=== PATIENT | female | born 1990 | race African-American/Black ===

== ENCOUNTER 2020-01-14 15:57 | Emergency (ER) | payer MEDICAID, OTHER ==
[~2020-01-14] VITALS: Ht 170.2 cm; Wt 51.7 kg
[~2020-01-14 15:57] MED LIST: MACROBID100 MG ORAL; PRENATAL 19 TA1 EACH PO; ZOFRAN ODT4 MG ORAL; ZOFRAN4 MG ORAL
--- NOTE | 2020-01-14 16:17 | NUR ---
ED Nurse Note: Pt ambulated to ed c/o lower left abdomen pain with nausea vomiting x2 days. pt urine specimen collected, iv site established patent and intact. blood specimen sent to lab
[2020-01-14 16:18] VITALS: BP 110/67
[2020-01-14] MEDS ORDERED: Morphine Sulfate 2mg/ml Inj(IV/IM USE ONLY) IVP ONE (16:30)
[2020-01-14] MEDS ORDERED: Omnipaque-300 100ml vial INJ PRN (16:30)
--- NOTE | 2020-01-14 16:38 | Emergency Room Report ---
History of Present Illness General Chief Complaint: Abdominal Pain Source: Patient Present Illness HPI 29-year-old female with no significant past medical history presents with lower abdominal pain and vomiting for 3 days. She reports her LMP was 02/08/2020 and she is not sure if she is however she has had the IUD for the past 3 years. She denies any fever, diarrhea, constipation, urinary symptoms, flank pain. No medications taken for pain. Pain rated 8 out of 10. Allergies: Coded Allergies: NO KNOWN DRUG ALLERGIES (Unverified Allergy, Unknown, 03/15/15) Patient History Past Medical History: see triage record Now: No : 2 Para: 1 Reviewed Nursing Documentation: PMH: Agreed; PSxH: Agreed Nursing Documentation-PMH Past Medical History: No Stated History Review of Systems All Other Systems: negative except mentioned in HPI Physical Exam Vital Signs Date Time Temp Pulse Resp B/P (MAP) Pulse Ox O2 Delivery O2 Flow Rate FiO2 01/14/20 15:59 99.1 78 16 110/67 (81) 98 Room Air Sp02 EP Interpretation: reviewed, normal General Appearance: normal inspection, well appearing, no apparent distress, alert, GCS 15, non-toxic ENT: EOM grossly intact, normal pharynx, normal voice, TMs + canals normal, uvula midline Neck: normal inspection, full range of motion, supple, thyroid normal, no meningismus, no bony tend Respiratory: chest non-tender, lungs clear, normal breath sounds, no respiratory distress Cardiovascular #1: normal peripheral pulses, regular rate, rhythm Gastrointestinal: normal inspection, normal bowel sounds, soft, no mass, no organomegaly, no guarding, no rebound, other - Right lower quadrant tenderness Genitourinary: CVA tenderness (R) Musculoskeletal: normal inspection, normal range of motion, no calf tenderness , gait/station normal, non-tender Neurologic: alert, motor strength/tone normal, 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 Fernandes is my supervising physician whom patient management and care has been discussed with. Diagnostic Impression: Primary Impression: Pyelonephritis ER Course Pt. presents to the ED c/o lower abdominal pain and vomiting for 3 days. Ddx considered but are not limited to appendicitis, UTI, pyelonephritis, nephrolithiasis, ovarian torsion, hemorrhagic cyst, gastroenteritis. Vital signs: are WNL, pt. is afebrile H&PE are most consistent with pyelonephritis ORDERS: Labs within normal limits Urinalysis evident for UTI CT abdomen pelvis favors pyelonephritis negative Drug tox positive for THC ED INTERVENTIONS: Patient given IV normal saline, morphine, Zofran. DISCHARGE: Patient with significant relief from medications. Abdomen nontender. Tolerating p.o. fluids. Vitals stable. Good candidate for outpatient treatment at this time. Pt. is stable for d/c to home. Will provide printed patient care instructions, and prescription for Keflex 500 mg 4 times daily for 7 days. Advised increase in water intake. Advised to follow up outpatient in 1 -2 days. Care plan and follow up instructions have been discussed with the patient prior to discharge. Strict return precautions given. Laboratory Tests Test 01/14/20 16:15 White Blood Count 10.5 K/UL (4.8-10.8) Red Blood Count 4.25 M/UL (4.20-5.40) Hemoglobin 13.1 G/DL (12.0-16.0) Hematocrit 40.0 % (37.0-47.0) Mean Corpuscular Volume 94 FL (80-99) Mean Corpuscular Hemoglobin 30.8 PG (27.0-31.0) Mean Corpuscular Hemoglobin Concent 32.7 G/DL (32.0-36.0) Red Cell Distribution Width 12.2 % (11.6-14.8) Platelet Count 229 K/UL (150-450) Mean Platelet Volume 8.4 FL (6.5-10.1) Neutrophils (%) (Auto) 59.9 % (45.0-75.0) Lymphocytes (%) (Auto) 23.3 % (20.0-45.0) Monocytes (%) (Auto) 14.5 % (1.0-10.0) H Eosinophils (%) (Auto) 0.1 % (0.0-3.0) Basophils (%) (Auto) 2.1 % (0.0-2.0) H Urine Color Brown Urine Appearance Clear Urine pH 6 (4.5-8.0) Urine Specific Yeso 1.010 (1.005-1.035) Urine Protein 2+ (NEGATIVE) H Urine Glucose (UA) Negative (NEGATIVE) Urine Ketones 3+ (NEGATIVE) H Urine Blood 2+ (NEGATIVE) H Urine Nitrite Negative (NEGATIVE) Urine Bilirubin Negative (NEGATIVE) Urine Urobilinogen 8 MG/DL (0.0-1.0) H Urine Leukocyte Esterase 3+ (NEGATIVE) H Urine RBC 2-4 /HPF (0 - 2) H Urine WBC 5-10 /HPF (0 - 2) H Urine Squamous Epithelial Cells Few /LPF (NONE/OCC) Urine Bacteria Moderate /HPF (NONE) H Urine HCG, Qualitative Negative (NEGATIVE) Sodium Level 136 MMOL/L (136-145) Potassium Level 3.5 MMOL/L (3.5-5.1) Chloride Level 98 MMOL/L (98-107) Carbon Dioxide Level 28 MMOL/L (21-32) Anion Gap 10 mmol/L (5-15) Blood Urea Nitrogen 9 mg/dL (7-18) Creatinine 0.9 MG/DL (0.55-1.30) Estimate Glomerular Filtration Rate > 60 mL/min (>60) Glucose Level 101 MG/DL (74-106) Calcium Level 9.2 MG/DL (8.5-10.1) Total Bilirubin 0.4 MG/DL (0.2-1.0) Aspartate Amino Transferase (AST) 19 U/L (15-37) Alanine Aminotransferase (ALT) 21 U/L (12-78) Alkaline Phosphatase 51 U/L (46-116) Total Protein 7.6 G/DL (6.4-8.2) Albumin 2.9 G/DL (3.4-5.0) L Globulin 4.7 g/dL Albumin/Globulin Ratio 0.6 (1.0-2.7) L Lipase 89 U/L (73-393) Urine Opiates Screen Negative (NEGATIVE) Urine Barbiturates Screen Negative (NEGATIVE) Phencyclidine (PCP) Screen Negative (NEGATIVE) Urine Amphetamines Screen Negative (NEGATIVE) Urine Benzodiazepines Screen Negative (NEGATIVE) Urine Cocaine Screen Negative (NEGATIVE) Urine Marijuana (THC) Screen Positive (NEGATIVE) H CT/MRI/US Diagnostic Results CT/MRI/US Diagnostic Results : Impression CT abdomen and pelvis with contrast: Preliminary findings by radiologist Grabiel Alicea MD Cortical hypodensities to both kidneys, right more pronounced than left. Favor pyelonephritis. No hydronephrosis. No bowel obstruction or perforation. The appendix is not identified due to lack of intra-peritoneal fat. IUD within the central uterus. 1.7 cm involuting right ovarian cyst. Last Vital Signs Date Time Temp Pulse Resp B/P (MAP) Pulse Ox O2 Delivery O2 Flow Rate FiO2 01/14/20 16:18 78 16 Room Air 01/14/20 16:18 99.1 110/67 98 Disposition: HOME, SELF-CARE Condition: Stable Scripts Cephalexin* (KEFLEX*) 500 Mg Capsule 500 MG ORAL EVERY 6 HOURS for 7 Days, #28 CAP Prov: Della Petit N. P.AAgata 01/14/20 Della Petit PDain Jan 14, 2020 16:38
[2020-01-14 16:55] LABS: BASOPHILS % (AUTO) 2.1 % (0.0-2.0); EOSINOPHILS % (AUTO) 0.1 % (0.0-3.0); HEMOGLOBIN 13.1 G/DL (12.0-16.0); LYMPHOCYTES % (AUTO) 23.3 % (20.0-45.0); MEAN CORPUSCULAR VOLUME 94 FL (80-99); MONOCYTES % (AUTO) 14.5 % (1.0-10.0); NEUTROPHILS % (AUTO) 59.9 % (45.0-75.0); PLATELET COUNT 229 K/UL (150-450); RED BLOOD COUNT 4.25 M/UL (4.20-5.40); RED CELL DISTRIBUTION WIDTH 12.2 % (11.6-14.8); WHITE BLOOD COUNT 10.5 K/UL (4.8-10.8)
[2020-01-14 16:56] LABS: ANION GAP 10 mmol/L (5-15); BLOOD UREA NITROGEN 9 mg/dL (7-18); CALCIUM 9.2 MG/DL (8.5-10.1); CARBON DIOXIDE 28 MMOL/L (21-32); CHLORIDE 98 MMOL/L (98-107); CREATININE 0.9 MG/DL (0.55-1.30); POTASSIUM 3.5 MMOL/L (3.5-5.1); SODIUM 136 MMOL/L (136-145)
[2020-01-14 16:57] LABS: APPEARANCE,URINE CLEAR; BILIRUBIN, URINE NEGATIVE (NEGATIVE); COLOR,URINE BROWN; GLUCOSE, URINE (UA) NEGATIVE (NEGATIVE); KETONES,URINE 3+ (NEGATIVE); LEUKOCYTE ESTERASE ,URINE 3+ (NEGATIVE); NITRITE,URINE NEGATIVE (NEGATIVE); PH,URINE 6 (4.5-8.0); PROTEIN,URINE 2+ (NEGATIVE); UROBILINOGEN,URINE 8 MG/DL (0.0-1.0)
--- NOTE | 2020-01-14 17:00 | NUR ---
ED Nurse Note: spoke with labratory, informed them of additional tox screen order.
[2020-01-14 17:01] LABS: ALANINE AMINOTRANSFERASE 21 U/L (12-78); ALBUMIN 2.9 G/DL (3.4-5.0); ALBUMIN/GLOBULIN RATIO 0.6 (1.0-2.7); ALKALINE PHOSPHATASE 51 U/L (46-116); ASPARTATE AMINO TRANSFERASE 19 U/L (15-37); BILIRUBIN,TOTAL 0.4 MG/DL (0.2-1.0)
--- NOTE | 2020-01-14 17:19 | NUR ---
ED Nurse Note: pt taken to CT
--- NOTE | 2020-01-14 17:29 | NUR ---
ED Nurse Note: PT RETURNED FROM CT
[2020-01-14 18:18] VITALS: BP 113/72
--- NOTE | 2020-01-14 18:53 | NUR ---
ED Nurse Note: pt given juice per request
--- NOTE | 2020-01-14 19:15 | Diagnostic Imaging Report ---
Clinical Indication: Lower abdominal pain and vomiting for 3 days Technique: No oral contrast utilized, per emergency room physician request IV administration nonionic contrast. Venous phase spiral acquisition obtained through the abdomen and pelvis. Multiplanar reconstructions were generated. Total dose length product 149 mGycm. CTDIvol(s) 2.9 mGy. Dose reduction achieved using automated exposure control Comparison: none Findings: The kidneys demonstrate heterogeneous contrast opacification, particularly the right. No focal mass. No calculi, hydronephrosis, or hydroureter demonstrated. The bladder appears unremarkable. The appendix is not definitely identified, but no findings to suggest acute appendicitis are evident. No evidence of colonic diverticulosis or diverticulitis. No small bowel distention. No free or loculated intraperitoneal gas or fluid is evident. Distal esophagus, stomach, duodenum are unremarkable. The liver, gallbladder, bile ducts, pancreas, spleen, adrenals are unremarkable. There is an intrauterine device in good position. No pelvic mass or adenopathy. The included lung bases are clear. The bones demonstrate degenerative spondylosis changes. Impression: Heterogeneous contrast opacification of the kidneys, right greater than left, likely indicating pyelonephritis. No evidence of calculi or hydronephrosis Intrauterine device noted. This agrees with the preliminary interpretation provided overnight by [facility] teleradiology service. The CT scanner at [facility] is accredited by the [employer] and the scans are performed using protocols designed to limit radiation exposure to as low as reasonably achievable to attain images of sufficient resolution adequate for diagnostic evaluation.
--- NOTE | 2020-01-14 19:17 | NUR ---
HAND-OFF: Report given to dash munguia.
[2020-01-14] MEDS ORDERED: CEPHALEXIN500 MG ORAL (19:18)
[2020-01-14 19:30] VITALS: BP 115/75
--- NOTE | 2020-01-14 19:30 | NUR ---
ER DISCHARGE NOTE: Patient is cleared to be discharged per ERMD, pt is aox4, on room air, with stable vital signs. pt was given dc and prescription instructions, pt was able to verbalize understanding, pt id band and iv site removed without complications. pt is able to ambulate with steady gait. pt took all belongings.
== END 2020-01-14 19:30 | disposition home or self-care (01) ==
LOC: EMR 16:30
DX: N12 Tubulo-interstitial nephritis, not specified as acute or chronic (principal); Z97.5 Presence of (intrauterine) contraceptive device
CPT/HCPCS: 36415; 74177; 80053; 80307; 81003; 81025; 83690; 85025; 87086; 96361; 96374; 96375; J2270; J2405; J7030; Q9967; Z7502; 99284